=== PATIENT | female | born 1985 | race Caucasian/White ===

== ENCOUNTER 2019-10-24 05:50 | Inpatient (IN) | payer BC, SELFPAY ==
[2019-10-24] VITALS (182 sets, daily range): BP systolic 65–136; BP diastolic 47–104; PULSE 64–157; RESP 16; TEMP 36.6–37.9; O2SAT 88–100; BMI 29.0
--- NOTE | 2019-10-24 05:50 | LDADM ---
This patient, Amna Centeno, was admitted to Labor/Delivery/Recovery 107 on 10/24/19 at 05:50. Plans for labor, pain management and were discussed with patient. Patient/family oriented to hospital policies and general routines including ID bracelet, bed and alarms, visiting hours, pain management, procedures, bathroom and other care routines, personal items, smoking policy, room service/diet and guest tray routines, infant security routines, and visiting hours. Patient/Family are encouraged to report perceived risks to care and to ask questions if they do not understand what they are told or what they should do. See OBIX for further documentation.
[2019-10-24 06:40] LABS: Basophils Absolute Auto 0.1 K/mm3 (0.0-0.1); Basophils Percent Auto 0.7 % (0.2-1.2); Eosinophils Absolute Auto 0.2 K/mm3 (0-0.3); Eosinophils Percent Auto 1.4 % (0-4.4); Hematocrit 35.2 % (37.0-47.0); Hemoglobin 11.9 g/dL (12.0-15.0); Immature Granulocyte Absolute 0.09 K/mm3 (0.00-0.031); Immature Granulocyte Percent A 0.7 % (0-0.5); Lymphocytes Absolute Auto 2.52 K/mm3 (0.9-3.2); Lymphocytes Percent Auto 20.5 % (18.3-44.2); Mean Corpuscular HGB Conc 33.8 g/dl (32-36); Mean Corpuscular Hemoglobin 30.4 pg (26-34); Mean Platelet Volume 9.9 fl (7.4-10.4); Monocytes Percent Auto 8.4 % (2.6-8.5); Neutrophils Absolute Auto 8.4 K/mm3 (1.3-6.7); Neutrophils Percent Auto 68.3 % (45.5-73.1); Platelet Count Result 282 k/mm3 (150-375); Red Blood Count 3.91 M/mm3 (4.2-5.4); White Blood Count 12.3 K/mm3 (4.5-10.0)
[2019-10-24] MEDS: OXYTOCIN 30 UNITS/NS 500 ML 30 UNITS/500 ML BAG IV CONT (06:42)
[2019-10-24] MEDS: LACTATED RINGERS 1,000 ML 125 ML IV CONT ×3 (06:42→14:52)
--- NOTE | 2019-10-24 07:25 | WPDOBADMIT ---
Obstetrics - Admit Note Admission Note: record reviewed. No pertinent additions to the history and/or any subsequent changes in the physical findings that are not consistent with the expected course of the were found. EIL at 39.1 weeks gestation, LGA, GBS negative, AROM minimal amount of clear odorless fluid. SVE 1-2/70/-2 Additions to the history and/or subsequent changes in the physical findings follow. None.
--- NOTE | 2019-10-24 11:54 | WPDANESEPP ---
Anes - Eval Pre Procedure Procedure: Labor Epidural Date/Time: 10/24/19 11:54 Pre Op Diagnosis: Induction of Labor Patient Data Age: 33 Gender: F Height: 1.7 m Weight: 84 kg Last Vital Signs Temp 37.4 C 10/24/19 11:00 Pulse 77 10/24/19 11:30 BP 112/73 10/24/19 11:30 Allergies Allergy/AdvReac Type Severity Reaction Status Date / Time No Known Allergies Allergy Unknown Unverified 10/13/14 15:10 Home Medications Medication Instructions Recorded Confirmed Type PNV cmb#95-ferrous fumarate-FA 1 tablet PO DAILY 10/03/19 10/24/19 History [] aspirin [Children's Aspirin] 81 mg PO DAILY 10/03/19 10/24/19 History ferrous sulfate [Iron (ferrous 325 mg PO BID 10/03/19 10/24/19 History sulfate)] cephalexin 500 mg PO BID 10/24/19 10/24/19 History Laboratory Tests 10/24/19 10/24/19 10/24/19 06:33 06:33 06:34 WBC 12.3 K/mm3 H K/mm3 (4.5-10.0) RBC 3.91 M/mm3 L M/mm3 (4.2-5.4) Hgb 11.9 g/dL L g/dL (12.0-15.0) Hct 35.2 % L % (37.0-47.0) MCV 90.0 fl fl (80-100) MCH 30.4 pg pg (26-34) MCHC 33.8 g/dl g/dl (32-36) RDW 14.0 % % (11.5-14.5) Plt Count 282 k/mm3 k/mm3 (150-375) MPV 9.9 fl fl (7.4-10.4) Immature Gran % (Auto) 0.7 % H % (0-0.5) Neut % (Auto) 68.3 % % (45.5-73.1) Lymph % (Auto) 20.5 % % (18.3-44.2) [place] % (Auto) 8.4 % % (2.6-8.5) Eos % (Auto) 1.4 % % (0-4.4) Baso % (Auto) 0.7 % % (0.2-1.2) Lymph # (Auto) 2.52 K/mm3 K/mm3 (0.9-3.2) [place] # (Auto) 1.0 K/mm3 H K/mm3 (0.1-0.6) Eos # (Auto) 0.2 K/mm3 K/mm3 (0-0.3) Baso # (Auto) 0.1 K/mm3 K/mm3 (0.0-0.1) Abs Immat Gran (auto) 0.09 K/mm3 H K/mm3 (0.00-0.031) Absolute Neuts (auto) 8.4 K/mm3 H K/mm3 (1.3-6.7) Absolute Nucleated RBC 0.0 K/mm3 K/mm3 (0.0-0.012) Nucleated RBC % 0.0 % % (0.0-0.2) RPR Pending Blood Type A Positive Antibody Screen Negative Patient hx anesthesia problems: none Family hx anesthesia problems: none PMFSH Past Medical History Medical History Chest pain Former smoker Social History Social History Smoking status: Former smoker Second hand tobacco smoke exposure: No Substance use: never Gender identity (if verbalized by the patient): Female Spiritual care concerns: No Exam Day of Procedure 10/24/19 11:54 Patient weight: overweight Heart: regular rate and rhythm Lungs: normal air movement Airway: Mallampati scale class II Neurological: alert and oriented
--- NOTE | 2019-10-24 19:31 | PM.OBPRVD ---
OB - Delivery Note Procedure Delivery date: 10/24/19 Procedure: vaginal delivery Induction method: AROM and per pitocin protocol Delivery monitor: external FHT and external uterine Route of delivery: Laceration description: Vaginal - 1st Degree Delivery repair: vicryl Specimen: No Estimated blood loss (mL): 215 Anesthesia type: Epidural Disposition: other () Narrative: SNM at bs withCNM and head delivered OA, slowly rotated to RAMIRO, anterior shoulder not easily delivered and CNM took over makenna and suprapubic pressure, RML. CNM able to rotate anterior shoulder out and fetus delivered total time 90 sec and baby to warmer, apgars 8 and 9, moving both shoulders and arms equally, baby then skin to skin after 1 minute [place] Baby Date of : 10/24/19 Time of : 19:12 Weeks of gestation at delivery: 39 Infant gender: Male Weight (pounds): 8 Weight (ounces): 12 presentation: vertex position: Right Occiput Anterior Placenta delivery description: Spontaneous cord vessel description: 3 Vessels, Nuchal Cord, Loose and Reduced score one minute: 8 score five minutes: 9
[2019-10-24] MEDS: OXYTOCIN 30 UNITS/NS 500 ML 30 UNITS/500 ML BAG 125 UNITS IV CONT (19:47)
[2019-10-24] MEDS: BENZOCAINE 20% AER SPR (*SP) 56 GM CAN 1 SPRAY TOPICAL (21:26)
[2019-10-24] MEDS: WITCH HAZEL 40 PADS 1 PAD TOPICAL (21:26)
--- NOTE | 2019-10-24 23:17 | OBPPTRN ---
Patient transferred to post room #292 via wheelchair with baby in bassinet. Support person present. Oriented to unit, room, information board, rooming in, admission packet and security measures. Patient verbalizes understanding.
[2019-10-25] MEDS: IBUPROFEN 600 MG TABLET PO ×2 (04:11→20:43)
[2019-10-25 05:28] LABS: Hematocrit 34.7 % (37.0-47.0); Hemoglobin 11.3 g/dL (12.0-15.0)
[2019-10-25 07:40] VITALS: BP 105/62; PULSE 80; RESP 18; TEMP 36.7
[2019-10-25] MEDS: TETANUS,DIPHTHERIA,AC PERTUSSIS ADULT (0.5 ML) BOOSTRIX IM (09:38)
--- NOTE | 2019-10-25 09:43 | P.PNOB_ITS ---
OB - PN: Subj Subjective Date/time seen: 10/25/19 09:43 Patient comments: no complaints baby status: doing well [place] feeding status: exclusively breast feeding OB - PN: Obj Data Labs CBC & Chem 7: 10/25/19 04:07 Labs: Laboratory Results - last 24 hr 10/25/19 04:07 Hgb 11.3 L Hct 34.7 L OB - PN A/P Plan day: 1 Plan: routine care Time Spent With Patient Time: Total time spent is greater than 50% in coordination of care (as documented) at patient's floor/unit and/or counseling patient: Exam 2 Const: General: comfortable Resp: Effort & Inspection: normal respiratory effort Psych: Appearance: grossly normal Affect: normal affect
[2019-10-25] MEDS: MULTIVIT/MIN/PREN/FOL AC/IRON TABLET 1 TAB PO (10:59)
[2019-10-25] MEDS: CEPHALEXIN 500 MG CAPSULE PO ×2 (10:59→20:42)
--- NOTE | 2019-10-25 14:55 | WPDANLDPN2 ---
Anes-Prog Note L&D Date/Time: 10/25/19 14:55 Comfortable throughout: labor and delivery Neuraxial method: epidural Epidural/Spinal procedure site: clean & non-tender Neuro status: Neuro function grossly intact. Cardiovascular status: normal Respiratory status: normal Airway patency: baseline Mental status: baseline Post-Op hydration status: normal Vital Signs: Last Vital Signs Temp 36.7 C 10/25/19 07:40 Pulse 80 10/25/19 07:40 Resp 18 10/25/19 07:40 BP 105/62 10/25/19 07:40 Pulse Ox 98 10/24/19 23:00 I/O: Intake & Output 10/24/19 10/25/19 10/25/19 23:59 07:59 15:59 Intake Total 600 Balance 600 Post-procedural complaints: none Patient feedback: Patient satisfied with anesthetic care.
[2019-10-25 19:20] VITALS: BP 99/62; PULSE 80; RESP 18; TEMP 37.3
--- NOTE | 2019-10-25 21:23 | PC.NURSE ---
10/25/2019 at 2130 Patient viewed the discharge video Mother & Baby Care, The First Two Weeks . Patient was given the opportunity and encouraged to ask questions. Patient verbalized understanding of information shared and has been given the mother/baby guide for home reference.
[2019-10-26 07:50] VITALS: BP 109/69; PULSE 66; RESP 20; TEMP 36.6
--- NOTE | 2019-10-26 08:51 | PM.OBPNVD ---
OB - PN: Subj Subjective Date/time seen: 10/26/19 08:51 Patient comments: no complaints baby status: doing well [place] feeding status: exclusively breast feeding OB - PN: Obj Data Labs CBC & Chem 7: 10/25/19 04:07 OB - PN A/P Plan day: 2 Plan: discharge home Time Spent With Patient Time: Total time spent is greater than 50% in coordination of care (as documented) at patient's floor/unit and/or counseling patient: Exam Const: General: comfortable Psych: Appearance: grossly normal Affect: normal affect Attitude: cooperative Judgement: Good judgement present (Psych)
[2019-10-26] MEDS: MULTIVIT/MIN/PREN/FOL AC/IRON TABLET 1 TAB PO (09:09)
[2019-10-26] MEDS: CEPHALEXIN 500 MG CAPSULE PO (09:10)
--- NOTE | 2019-10-26 10:56 | WPDANLDPN2 ---
Anes-Prog Note L&D Date/Time: 10/26/19 10:56 Comfortable throughout: labor and delivery Neuraxial method: epidural Epidural/Spinal procedure site: clean & non-tender Neuro status: Neuro function grossly intact. Cardiovascular status: normal Respiratory status: normal Airway patency: baseline Mental status: baseline Post-Op hydration status: normal Vital Signs: Last Vital Signs Temp 36.6 C 10/26/19 07:50 Pulse 66 10/26/19 07:50 Resp 20 10/26/19 07:50 BP 109/69 10/26/19 07:50 Pulse Ox 98 10/24/19 23:00 Post-procedural complaints: none Patient feedback: Patient satisfied with anesthetic care.
[2019-10-27 08:57] LABS: Rapid Plasma Reagin Non-Reactive (NonReactive)
[2019-10-28 10:11] VITALS: BP 118/78; PULSE 68; RESP 16; TEMP 36.6; O2SAT 99
--- NOTE | 2019-10-30 18:43 | PM.OBDSVD ---
DS: Admitting Diagnosis Admitting Diagnosis Admitting Diagnosis: Induction of Labor OB - DS: Summary OB Procedures : None OB Procedures Intrapartum: Spontaneous Vag Delivery OB Procedures: : None Time Spent with Patient Time attestation: Total time spent providing and/or coordinating discharge services: Discharge Plan Discharge Attending physician on discharge: Juan Sales Consulting providers: Nani Hall Discharging Clinician: Nani Hall Patient Disposition: Home, Self-Care Activity: pelvic rest Diet: regular Discharge Instructions: Education: Mom and Baby Guide Given to: Mother Follow-Up: Call your delivering provider's office for an appointment to be seen in: 4 Weeks Mom and baby should come to the [facility] for the follow-up appointment. Appointment Date/Time: October 28, 2019 at 10:00 am What to expect at your follow-up visit: Physical Assessment Call [phone] if you are unable to keep your appointment time. BREAST CARE: * Wear a snug supportive bra. * For engorgement discomfort: Breast Feeding: * Apply warm moist washcloths * Express milk as needed to relieve engorgement * Wear loose clothing * For sore nipples: * Identify correct latch-on * Apply warm moist washcloths before and after nursing * Air dry nipples after nursing * May apply [place] cream to nipples EPISIOTOMY/PERINEAL CARE: * Until bleeding stops, use your vicky bottle after urinating * Change your pad frequently throughout the day * You may take sitz baths several times a day (fill your bathtub with warm water and soak for 20 minutes.) Do NOT bathe in the water * No tub baths until seen by your physician - You may shower ACTIVITY: * Rest as much as possible. * Do not exercise or lift anything heavier than your baby (such as laundry or other children.) * Avoid stairs or driving as much as possible. * Do not put anything into the vagina. No douching, tampons, or sexual activity until seen by physician. NOTIFY PHYSICIAN IF YOU HAVE ANY QUESTIONS OR IF ANY OF THE FOLLOWING SYMPTOMS OCCUR: * If your stitches become red, swollen, or more painful than what you have experienced in the hospital. * If your vaginal bleeding becomes foul smelling. * If your vaginal bleeding becomes more heavy than a period or if your bleeding changes from pink to bright red. However, you may pass an occasional walnut-sized clot once or twice for the first week . * If you experience a sharp, shooting pain in you calves. * If you discover a hard, reddened area on your breast or if you experience flu-like symptoms. DIET: * Eat regular, well-balanced meals. * Drink plenty of fluids daily. If , drink to thirst. Stand Alone Forms: General Discharge Information Follow-up/Referrals: Nani Hall CNM [Certified Nurse Assembler Mechanical Ordnance] - 4 Weeks Discharge Medications: Continued ferrous sulfate [Iron (ferrous sulfate)] 325 mg (65 mg iron) Tablet 325 mg PO BID RF: 0 PNV cmb#95-ferrous fumarate-FA [] 28 mg iron- 800 mcg Tablet 1 tablet PO DAILY RF: 0 cephalexin 500 mg capsule 500 mg PO BID RF: 0 Discontinued aspirin [Children's Aspirin] 81 mg Tablet,Chewable 81 mg PO DAILY RF: 0 Date of admission: 10/24/19 05:50 Primary Care Provider: PHYSICIAN,COMPRESSION MOLDING MACHINE OPERATOR Admitting Provider: Juan Sales Discharge Date/Time: 10/26/19 11:13 Attending physician on admission: Juan Sales
== END 2019-10-26 11:13 | disposition home or self-care (01) | DRG 807 ==
LOC: ANHLDR 05:55 → ANHOB2 22:27
PROVIDERS: Advanced Practice Midwife; Admitting Provider Obstetrics & Gynecology; Visit Provider Obstetrics & Gynecology
DX: O69.81X0 Labor and delivery complicated by cord around neck, without compression, not applicable or unspecified (principal); Z37.0 Single live birth; O70.0 First degree perineal laceration during delivery; Z3A.39 39 weeks gestation of pregnancy; Z23 Encounter for immunization
CPT/HCPCS: 36415; 85014; 85018; 85025; 86592; 86850; 86900; 86901; 90471; 90686; 90715; A9270; G0008; J0131; J2590; J2795; J7120

== ENCOUNTER 2020-11-20 04:57 | Inpatient (IN) | payer BC, SELFPAY ==
[2020-11-20] VITALS (91 sets, daily range): BP systolic 82–125; BP diastolic 51–106; PULSE 62–102; RESP 18; TEMP 36.3–37.3; O2SAT 95–100; BMI 31.4
--- NOTE | 2020-11-20 04:57 | LDADM ---
This patient, Amna Centeno, was admitted to Labor/Delivery/Recovery 107 on 11/20/20 at 04:57. Plans for labor, pain management and were discussed with patient. Patient/family oriented to hospital policies and general routines including ID bracelet, bed and alarms, visiting hours, pain management, procedures, bathroom and other care routines, personal items, smoking policy, room service/diet and guest tray routines, infant security routines, and visiting hours. Patient/Family are encouraged to report perceived risks to care and to ask questions if they do not understand what they are told or what they should do. See OBIX for further documentation.
[2020-11-20] MEDS: LACTATED RINGERS 1,000 ML 125 ML IV CONT ×2 (06:07→09:06)
[2020-11-20] MEDS: AMPICILLIN 2 GM/NS 100 ML 2 GM/100 ML BAG IVPB (06:08)
[2020-11-20 06:30] LABS: Basophils Absolute Auto 0.1 K/mm3 (0.0-0.1); Basophils Percent Auto 1.1 % (0.2-1.2); Eosinophils Absolute Auto 0.2 K/mm3 (0-0.3); Eosinophils Percent Auto 1.9 % (0-4.4); Hemoglobin 11.3 g/dL (12.0-15.0); Immature Granulocyte Absolute 0.08 K/mm3 (0.00-0.031); Immature Granulocyte Percent A 0.7 % (0-0.5); Lymphocytes Absolute Auto 3.02 K/mm3 (0.9-3.2); Mean Corpuscular HGB Conc 32.3 g/dl (32-36); Mean Corpuscular Hemoglobin 29.7 pg (26-34); Mean Corpuscular Volume 92.1 fl (80-100); Mean Platelet Volume 10.2 fl (7.4-10.4); Monocytes Absolute Auto 1.1 K/mm3 (0.1-0.6); Monocytes Percent Auto 8.8 % (2.6-8.5); Neutrophils Absolute Auto 7.6 K/mm3 (1.3-6.7); Neutrophils Percent Auto 62.5 % (45.5-73.1); Platelet Count Result 322 k/mm3 (150-375); Red Cell Distribution Width 13.6 % (11.5-14.5); White Blood Count 12.1 K/mm3 (4.5-10.0)
--- NOTE | 2020-11-20 06:30 | WPDOBADMIT ---
Obstetrics - Admit Note Admission Note: record reviewed. No pertinent additions to the history and/or any subsequent changes in the physical findings that are not consistent with the expected course of the were found. IOL, SVE /-2 AROM moderate amount of clear odorless fluid, GBS positive Additions to the history and/or subsequent changes in the physical findings follow. None.
[2020-11-20] MEDS: OXYTOCIN 30 UNITS/NS 500 ML 30 UNITS/500 ML BAG IV CONT (07:21)
--- NOTE | 2020-11-20 07:31 | P.PNAN_ITS ---
Anes - Eval Pre Procedure Procedure: labor epidural Date/Time: 11/20/20 07:31 Preop Diagnosis: labor pain Pre Op Diagnosis: IOL Patient Data Age: 34 Gender: F Height: 1.7 m Weight: 91 kg Last Vital Signs Pulse 79 11/20/20 07:01 BP 103/61 11/20/20 07:01 Allergies Allergy/AdvReac Type Severity Reaction Status Date / Time No Known Allergies Allergy Unknown Unverified 10/13/14 15:10 Home Medications Medication Instructions Recorded Confirmed Type PNV cmb#95-ferrous fumarate-FA 1 tablet PO DAILY 10/03/19 10/29/20 History [] ferrous sulfate [Iron (ferrous 325 mg PO BID 10/03/19 10/29/20 History sulfate)] Laboratory Tests 11/20/20 11/20/20 06:10 06:10 WBC 12.1 K/mm3 H K/mm3 (4.5-10.0) RBC 3.80 M/mm3 L M/mm3 (4.2-5.4) Hgb 11.3 g/dL L g/dL (12.0-15.0) Hct 35.0 % L % (37.0-47.0) MCV 92.1 fl fl (80-100) MCH 29.7 pg pg (26-34) MCHC 32.3 g/dl g/dl (32-36) RDW 13.6 % % (11.5-14.5) Plt Count 322 k/mm3 k/mm3 (150-375) MPV 10.2 fl fl (7.4-10.4) Immature Gran % (Auto) 0.7 % H % (0-0.5) Neut % (Auto) 62.5 % % (45.5-73.1) Lymph % (Auto) 25.0 % % (18.3-44.2) [place] % (Auto) 8.8 % H % (2.6-8.5) Eos % (Auto) 1.9 % % (0-4.4) Baso % (Auto) 1.1 % % (0.2-1.2) Lymph # (Auto) 3.02 K/mm3 K/mm3 (0.9-3.2) [place] # (Auto) 1.1 K/mm3 H K/mm3 (0.1-0.6) Eos # (Auto) 0.2 K/mm3 K/mm3 (0-0.3) Baso # (Auto) 0.1 K/mm3 K/mm3 (0.0-0.1) Abs Immat Gran (auto) 0.08 K/mm3 H K/mm3 (0.00-0.031) Absolute Neuts (auto) 7.6 K/mm3 H K/mm3 (1.3-6.7) Absolute Nucleated RBC 0.0 K/mm3 K/mm3 (0.0-0.012) Nucleated RBC % 0.0 % % (0.0-0.2) RPR Pending Patient hx anesthesia problems: none Family hx anesthesia problems: none Results Review: All pre-operative results and documents have been reviewed as part of the pre-operative evaluation. [facility] Past Medical History Medical History Chest pain Former smoker Family History Family History (Updated 10/29/20 @ 14:45 by Humberto Wagoner RN) Mother Diabetes mellitus Social History Social History Smoking status: Former smoker Second hand tobacco smoke exposure: No Substance use: never Gender identity (if verbalized by the patient): Female Spiritual care concerns: No Exam Day of Procedure 11/20/20 07:31
[2020-11-20] MEDS: AMPICILLIN 1 GM/NS 50 ML 1 GM/50 ML BAG IVPB (10:01)
--- NOTE | 2020-11-20 12:44 | PM.OBPRVD ---
OB - Delivery Note Procedure Delivery date: 11/20/20 Procedure: vaginal delivery Intrapartal events: None Induction method: AROM and per pitocin protocol Delivery monitor: external FHT and external uterine Route of delivery: Episiotomy description: Right Mediolateral Laceration Description: Perineal - 1st Degree Delivery repair: vicryl Specimen: No Quantitative Blood Loss (ml): 100 Anesthesia type: Epidural Disposition: floor Baby Date of : 11/20/20 Time of : 12:25 Weeks of gestation at delivery: 39 Infant gender: Male Weight (pounds): 8 Weight (ounces): 12 presentation: vertex position: Left Occiput Transverse Placenta delivery description: Spontaneous cord vessel description: 3 Vessels, Loose, Reduced and Clamped/Cut score one minute: 3 score five minutes: 8 Narrative: head delivered and cord around neck easily reduced, unable to deliver anterior shoulder and baby rolled to OA, unable to rotate posterior arm inward, RMGerman, and dr edmonds at [facility], able to deliver posterior shoulder and baby delivered, to nursery, senior talent acquisition specialist at bs and mother and baby in stable condition
[2020-11-20] MEDS: OXYTOCIN 30 UNITS/NS 500 ML 30 UNITS/500 ML BAG 125 UNITS IV CONT (13:02)
[2020-11-20] MEDS: WITCH HAZEL 40 PADS 1 PAD TOPICAL (15:03)
[2020-11-20] MEDS: BENZOCAINE 20% AER SPR (*SP) 56 GM CAN 1 SPRAY TOPICAL (15:03)
--- NOTE | 2020-11-20 15:58 | OBPPTRN ---
Patient transferred to post room # 282 via wheelchair. Support person present. Oriented to unit, room, information board, rooming in, admission packet and security measures. Patient verbalizes understanding. PT received such instructions and care via one to one discussion, mom baby care guide and demonstration. PT and spouse both recipients of such instructions and no barriers to learning identified at this time. PT verbalized understanding of such care.
[2020-11-20] MEDS: IBUPROFEN 600 MG TABLET PO ×2 (17:26→23:23)
[2020-11-20] MEDS: DOCUSATE SODIUM 100 MG CAPSULE PO (17:26)
[2020-11-20] MEDS: HYDROcodone/acetaminophen (*CRX) 5-325 MG TABLET 1 TAB PO ×2 (17:30→23:23)
[2020-11-21] MEDS: HYDROcodone/acetaminophen (*CRX) 5-325 MG TABLET 1 TAB PO ×2 (03:30→12:24)
[2020-11-21 03:37] VITALS: BP 100/62; PULSE 70; RESP 16; TEMP 36.1
[2020-11-21 04:55] LABS: Hemoglobin 11.1 g/dL (12.0-15.0)
--- NOTE | 2020-11-21 08:00 | PC.NURSE ---
Patient verbalizes understanding. PT received such instructions and care this shift via one to one discussion, mom baby care guide and demonstration. PT and spouse both recipients of such instructions and no barriers to learning identified at this time. PT verbalized understanding of such care. PT introductions made and plan of care discussed per post , pain management, bottle feeding, daily care activities and pending discharge to home.
--- NOTE | 2020-11-21 10:36 | P.PNOB_ITS ---
OB - PN: Subj Subjective Date/time seen: 11/21/20 10:36 Patient comments: no complaints baby status: doing well [place] feeding status: exclusively bottle feeding OB - PN: Obj Data Labs CBC & Chem 7: 11/21/20 03:21 Labs: Laboratory Results - last 24 hr 11/21/20 03:21 Hgb 11.1 L Hct 33.0 L OB - PN A/P Plan day: 1 Plan: routine care and discharge home Time Spent With Patient Time: Total time spent is greater than 50% in coordination of care (as d ocumented) at patient's floor/unit and/or counseling patient: Review of Systems Review of Systems: All systems reviewed & are unremarkable except as noted in HPI and below Exam 2 Const: General: cooperative and healthy appearing Psych: Affect: normal affect Attitude: cooperative Thought process: Normal thought process present Thought content: Yes Normal thought content present Insight: Good insight present (Psych) Judgement: Good judgement present (Psych)
--- NOTE | 2020-11-21 10:38 | P.DS_ITS ---
DS: Admitting Diagnosis Discharge Date 11/21/20 Admitting Diagnosis MIL DS: Discharge Diagnosis Discharge Diagnosis (1) Vaginal laceration: Code(s): S31.41XA - Laceration without foreign body of vagina and vulva, initial encounter Status: Acute OB - DS: Summary OB Procedures : None OB Procedures Intrapartum: Spontaneous Vag Delivery and Other (shoulder dystocia) OB Procedures: : None Time Spent with Patient Time attestation: Total time spent providing and/or coordinating discharge services: DS: Data Data Completed and Pending Labs on day of discharge: Labs from last 24 hours 11/21/20 03:21 Hgb 11.1 L Hct 33.0 L Discharge Plan Discharge Attending physician on discharge: Juan Sales Discharging Clinician: Nani Hall Patient Disposition: Home, Self-Care Activity: pelvic rest Diet: regular Patient Instructions: Antibiotic Form Stand Alone Forms: General Discharge Information Follow-up/Referrals: Nani Hall, CNM [Certified Nurse Visual Education Director] - 4 Weeks Discharge Medications: New hydrocodone-acetaminophen 5-325 mg Tablet 1 tablet PO Q4H PRN (Reason: Pain Rated 4-6) Qty: 30 RF: 0 Continued ferrous sulfate [Iron (ferrous sulfate)] 325 mg (65 mg iron) Tablet 325 mg PO BID RF: 0 PNV cmb#95-ferrous fumarate-FA [] 28 mg iron- 800 mcg Tablet 1 tablet PO DAILY RF: 0 Date of admission: 11/20/20 04:57 Primary Care Provider: PHYSICIAN,FLIGHT SECURITY SPECIALIST Admitting Provider: Juan Sales Attending physician on admission: Juan Sales Condition: Stable
[2020-11-21 12:15] VITALS: BP 103/62; PULSE 67; RESP 18; TEMP 36.6; O2SAT 97
[2020-11-21] MEDS: IBUPROFEN 600 MG TABLET PO (12:23)
[2020-11-21] MEDS: DOCUSATE SODIUM 100 MG CAPSULE PO (12:24)
--- NOTE | 2020-11-21 15:00 | PC.NURSE ---
Patient was given the opportunity to view the discharge video Mother & Baby Care, The First Two Weeks and to ask questions. Patient declined viewing the video and has been given the mother/baby guide for home reference.
--- NOTE | 2020-11-21 15:37 | PC.NURSE ---
PT discharged to home via ambulation accompanied by spouse and and taken to waiting car. Follow up appts confirmed
--- NOTE | 2020-11-21 17:07 | PC.NURSE ---
Addendum entered by Asa Morel RN 11/21/20 17:07: actual note written for 1500 Original Note: PT received discharge instructions per protocol and verbalized understanding of such care.
[2020-11-22 10:40] LABS: Rapid Plasma Reagin Non-Reactive (NonReactive)
== END 2020-11-21 15:37 | disposition home or self-care (01) | DRG 807 ==
LOC: ANHLDR 05:04 → ANHOB2 16:06
PROVIDERS: Advanced Practice Midwife; Admitting Provider Obstetrics & Gynecology; Visit Provider Obstetrics & Gynecology
DX: O99.824 Streptococcus B carrier state complicating childbirth (principal); Z37.0 Single live birth; O70.0 First degree perineal laceration during delivery; O69.81X0 Labor and delivery complicated by cord around neck, without compression, not applicable or unspecified; O66.0 Obstructed labor due to shoulder dystocia; O76 Abnormality in fetal heart rate and rhythm complicating labor and delivery; Z3A.39 39 weeks gestation of pregnancy
CPT/HCPCS: 36415; 85014; 85018; 85025; 86592; 86850; 86900; 86901; A9270; J0290; J2590; J2795; J7120